=== PATIENT | female | born 1985 | race Caucasian/White ===

== ENCOUNTER 2016-09-05 17:15 | Emergency (ER) | payer OTHER ==
[~2016-09-05] VITALS: Ht 1 cm; Wt 74.8 kg
[~2016-09-05 17:15] MED LIST: AMOXICILLIN500 M2 PO; ANAPROX DS550 MG PO; AURALGAN 15 ML15 ML OT; BACTRIM DS 8001 TA1 PO; BIRTH CONTROL1 EACH; CIPROFLOXACIN500 MG PO; CLARITIN10 MG PO; FLEXERIL10 MG PO; FLONASE 0.05% 121 EA NAS; FLONASE ALLERG9.9 ML NAS; HYCODAN 1.5 MG480 M1 PO; MOTRIN800 MG PO; NAPROSYN500 MG PO; NO MEDS; PREDNISONE10 MG PO; PROMETHAZINE D180 ML PO; PYRIDIUM100 MG PO; PYRIDIUM200 MG PO; ROBITUSSIN AC 110 ML PO; TRIMOX500 MG PO; ULTRAM50 MG PO; VENTOLIN H0.09 MG/AC INH; ZANTAC150 MG PO; ZITHROMAX Z PA250 MG PO; ZOFRAN4 MG PO; ZYRTEC10 MG PO
[2016-09-05 17:52] LABS: BILIRUBIN NEGATIVE (NEGATIVE); BLOOD 3+ (NEGATIVE); CLARITY SL CLOUDY (CLEAR); COLOR YELLOW (YELLOW); GLUCOSE NEGATIVE (NEGATIVE); KETONE NEGATIVE (NEGATIVE); LEUKO ESTERASE 2+ (NEGATIVE); NITRITE NEGATIVE (NEGATIVE); PROTEIN TRACE (NEGATIVE); SPECIFIC GRAVITY 1.025 (1.005-1.030); UROBILINOGEN 0.2 E.U./dl (0.2-1.0)
[2016-09-05 17:56] LABS: BASO % 0.3 % (0.0-1.0); EOS # 0.1 10*3/uL (0.0-0.4); EOS % 0.5 % (1.0-4.0); HEMATOCRIT 39.6 % (37.0-47.0); LYMPH % 26.1 % (27.0-41.0); MEAN CELL VOLUME 81.5 fl (81.0-99.0); MEAN CORPUSCULAR HGB 26.7 pg (27.0-31.0); MEAN CORPUSCULAR HGB CONC 32.8 g/dl (33.0-37.0); MEAN PLATELET VOLUME 10.5 fl (9.6-12.3); MONO # 0.6 10*3/uL (0.1-1.0); MONO % 4.8 % (3.0-9.0); NEUT # 7.9 10*3/uL (2.3-7.9); PLATELET COUNT AUTOMATED 221 10*3/uL (130-400); RED BLOOD COUNT 4.86 10*6/uL (4.10-5.10); RED CELL DISTRI WIDTH 14.2 % (0-14.5); WHITE BLOOD COUNT 11.6 10*3/uL (4.8-10.8)
[2016-09-05 18:02] LABS: BACTERIA 2+
[2016-09-05 18:03] LABS: HYALINE CAST 0-2; URINE REFLEX COMMENT YES (NO)
[2016-09-05 18:12] LABS: ALBUMIN 3.5 gm/dl (3.1-4.5); ALKALINE PHOSPHATASE 116 U/L (45-117); BILIRUBIN, TOTAL 0.5 mg/dl (0.2-1.0); BUN 13 mg/dl (7-24); CARBON DIOXIDE 23 mmol/L (21-32); CHLORIDE 105 mmol/L (98-107); CPK 220 U/L (26-192); EST GLOM FILT AFRICAN AMERICAN > 60 ml/min; GLUCOSE 189 mg/dL (65-99); LDH 151 U/L (84-246); MAGNESIUM 1.8 mg/dL (1.5-2.1); POTASSIUM 3.7 mmol/L (3.5-5.1); SGOT/AST 20 IU/L (3-35); SGPT/ALT 22 U/L (12-78); SODIUM 141 mmol/L (136-145); TOTAL PROTEIN 7.5 gm/dL (6.4-8.2)
[2016-09-05 18:16] LABS: TROPONIN I < 0.015 ng/ml (<0.045)
[2016-09-05] MEDS ORDERED: BACTRIM DS 8001 TA1 PO (20:20)
== END 2016-09-05 20:25 | disposition home or self-care (01) ==
LOC: ED 17:15
PROVIDERS: Physician Assistant
DX: N30.01 Acute cystitis with hematuria (principal); R00.2 Palpitations; Z91.040 Latex allergy status